=== PATIENT | male | born 1945 | race Caucasian/White ===

== ENCOUNTER → 2018-08-07 | Day surgery (SDC) | payer OTHER, MEDICARE ==
[~2018-08-07] VITALS: Ht 188 cm; Wt 67.4 kg
[~2018-08-07] MED LIST: DESYREL 100MG100 MG PO; FOLIC ACID 11 MG/TA1 PO; LEXAPRO20 MG PO; NATURE'S BLEND100 M2 PO; PRINZIDE 12.5 M1 TAB PO; ZOCOR 40MG40 MG PO
[2018-08-07 14:13] VITALS: BP 119/85; PULSE 64; TEMP 98.1
[2018-08-07 15:05] VITALS: BP 130/78; PULSE 57; TEMP 97.6
--- NOTE | 2018-08-07 15:05 | NUR ---
Patient arrives back to [facility] alert, denies pain or nausea. Patient is able to ambulate from cart to chair with standby assist and without any complications. Patient's family is at chair side. Patient monitor applied, vitals stable.
[2018-08-07 15:20] VITALS: BP 104/40; PULSE 57
--- NOTE | 2018-08-07 15:30 | NUR ---
Patient reports that he feels good and tolerated juice and muffin without any nausea. Vitals stable.
[2018-08-07 15:35] VITALS: BP 143/84; PULSE 50
--- NOTE | 2018-08-07 15:45 | NUR ---
Dr Vasquez into see patient at this time.
--- NOTE | 2018-08-07 15:50 | NUR ---
Dismissal instructions gone over with patient. Patient voices understanding and all questions answered.
[2018-08-07 17:23] VITALS: BP 135/75; PULSE 53
== END ==
LOC: SDCO 13:18
DX: K21.9 Gastro-esophageal reflux disease without esophagitis (principal); K22.2 Esophageal obstruction; R55 Syncope and collapse
CPT/HCPCS: C1726; J2250; J3010; J7030